=== PATIENT | female | born 1930 | race Caucasian/White ===

== ENCOUNTER 2019-03-30 10:05 | Emergency (ER) | payer OTHER ==
[2019-03-30 10:33] VITALS: TEMP 98; BMI 24.1
[2019-03-30] MEDS ORDERED: SODIUM CHLORIDE 0.9% 1000 ML INFUS.BAG IV ONE (10:33)
--- NOTE | 2019-03-30 10:35 | PDOC ---
History of Present Illness - General Chief Complaint: Pain Stated Complaint: ABDOMINAL PAIN FOR WEEKS FREQUENT BM Time Seen by Provider: 03/30/19 10:30 History Source: Patient Exam Limitations: No Limitations - History of Present Illness Initial Comments: 03/30/19 10:30 88 yo F wit h/o htn here from [place] visiting her daughter for holiday , c/o generalized malaise, frequent burping and abd discomfort. also decreased appetitie, nausea, noted her urine was dark. has been eating and drinking but drinking much less per her daughter. has been having these symptoms over the last 3 weeks. has had colonsocopy one yr ago. no h/o prior abd surgeries. take losartan for htn. no cp no sob. no leg swellig. no f/c no h/o thryoid abnormality. states she has lost 10 lbs over last year. 03/30/19 10:33 Past History - Past Medical History Allergies/Adverse Reactions: Allergies Allergy/AdvReac Type Severity Reaction Status Date / Time No Known Allergies Allergy Unverified 03/30/19 10:07 Home Medications: Ambulatory Orders Acetaminophen [Tylenol .Regular Strength -] 650 mg PO PRN 03/30/19 Aspirin 81 mg PO DAILY 03/30/19 Desvenlafaxine [Desvenlafaxine ER] 50 mg PO HS 03/30/19 Dexlansoprazole [Dexilant] 60 mg PO HS 03/30/19 L.acidoph,Paracasei, B.lactis [Probiotic] 1 each PO DAILY 03/30/19 Losartan 50Mg/Hctz 12.5MG [Hyzaar -] 1 tab PO DAILY 03/30/19 Tramadol HCl 50 mg PO DAILY 03/30/19 COPD: No HTN: Yes Psychiatric Problems: Yes (DEPRESSION) Other medical history: ARTHRITIS BACK PAIN - Psycho Social/Smoking Cessation Hx Smoking History: Never smoked Information on smoking cessation initiated: No Hx Alcohol Use: Yes (RARE SOCIAL) Drug/Substance Use Hx: No Review of Systems - Review of Systems Constitutional: Yes: Malaise. No: Chills, Diaphoresis HEENTM: No: Eye Pain, Nose Pain Respiratory: No: Orthopnea, Shortness of Breath Cardiac (ROS): No: Chest Pain ABD/GI: Yes: Nausea, Poor Appetite, Indigestion. No: Abdominal Distended, Abdominal cramping : Yes: Other (dark urine). No: Burning, Dysuria, Discharge Musculoskeletal: No: Back Pain Endocrine: Yes: Unexplained Weight Loss Hematologic/Lymphatic: No: Anemia All Other Systems: Reviewed and Negative *Physical Exam - Vital Signs Last Vital Signs Temp Pulse Resp BP Pulse Ox 98 F 102 H 16 150/90 95 03/30/19 10:06 03/30/19 10:06 03/30/19 10:06 03/30/19 10:06 03/30/19 10:06 - Physical Exam Comments: 03/30/19 10:34 awake alert lungs clear bilat heart rrr no mrg abd soft mild rlq suprapubic ttp. no rebound no guarding. ext wwp no edema. no calf tenderness. alert oriented x 3. skin warm and dry no rash. Heart Score/ECG Review #1 ECG reviewed & interpreted by me at: 10:51 General ECG Interpretation: Sinus Rhythm, Normal Rate (84), Normal Intervals, No acute ischemic changes ED Treatment Course - LABORATORY CBC & Chemistry Diagram: 03/30/19 10:55 03/30/19 10:55 Medical Decision Making - Medical Decision Making 03/30/19 10:35 88 yo F with h/o htn on losartan with generalized fatigue malaise, dyspepsia, nausea anorexia and weight loss. mild lower quad ttp on exam. differential uti, appendicitis ovarian pathology, hyponatremia from meds, renal fauilre atypical cardiac presentation. plan ekg lab ua ct a/p iv hydration.cxr 03/30/19 12:40 cxr is normal. labs unremarkable. small blood in urine. noted renal calculi in kidney and small cyst on left ovary appendix not well visuzlied. no fever. nomral wbc. pt has had sxs for weeks. unlikley acute appendicitis. plan to dc home. recommend fu with gynecology to follow ovarian cyst, and gi, in addition to urology to evaluate hematuria. Discharge - Discharge Information Problems reviewed: Yes Clinical Impression/Diagnosis: Hematuria Condition: Stable Disposition: HOME - Admission No - Follow up/Referral Referrals: Kapil Bauer MD [Staff Physician] - Allen Tim MD [Staff Physician] - - Patient Discharge Instructions Patient Printed Discharge Instructions: Blood in Urine Additional Instructions: your ct scan of your abdomen and pelvis are normal. only noted abnormalities is a small stone in your kidney which should not be causing you pain currently. also there is a small 2.5 cyst on your left ovary that should be followed up with a [employer] rep. they also noted blood in your urine this could be from prior stone, but should be followed up with a urologist to ensure that it clears .there is no signs of infection in your urine. return for any problems or concerns. follow up with your regular doctor. if you are staying in [place] for a while you can follow up with urologist to evaluate the bladder, and the [employer] rep to watch the cyst in your ovary to ensure its not changing or getting bigger. - Post Discharge Activity
[2019-03-30 11:09] LABS: BASO % 0.3 % (0-2.0); EOS % 0.5 % (0-4.5); HEMOGLOBIN 13.4 GM/dl (10.7-15.3); LYMPH % 16.9 % (8-40); MCH 29.5 pg (25.7-33.7); MCHC 32.7 g/dl (32.0-36.0); MEAN CELL VOLUME 90.2 fl (80-96); MEAN PLT VOLUME 7.8 fl (7.5-11.1); MONO % 8.4 % (3.8-10.2); NEUT % 73.9 % (42.8-82.8); PLATELET COUNT 201 K/MM3 (134-434); RBC 4.54 M/mm3 (3.60-5.2); RDW 13.1 % (11.6-15.6); WHITE BLOOD COUNT 7.1 K/mm3 (4.0-10.8)
[2019-03-30 11:19] LABS: ALBUMIN 4.1 g/dl (3.4-5.0); CALCIUM 9.5 mg/dl (8.5-10); CREATININE 0.8 mg/dl (0.55-1.3); TOT PROT 6.9 g/dl (6.4-8.2)
[2019-03-30 11:35] LABS: EPITHELIAL CELLS FEW /hpf
[2019-03-30 12:48] VITALS: BP 153/88; PULSE 82
--- NOTE | 2019-03-31 13:22 | EKG ---
Test Reason : Blood Pressure : / mmHG Vent. Rate : 084 BPM Atrial Rate : 084 BPM P-R Int : 146 ms QRS Dur : 066 ms QT Int : 398 ms P-R-T Axes : 062 -17 051 degrees QTc Int : 470 ms NORMAL SINUS RHYTHM NORMAL ECG NO PREVIOUS ECGS AVAILABLE Confirmed by ELA CAZARES MD ([id number]) on 03/31/2019 1:22:04 PM Referred By: KAMARI MALLORY Confirmed By:ELA CAZARES MD
== END 2019-03-30 13:16 | disposition home or self-care (01) ==
LOC: FER 10:05
PROC: 3E0337Z Introduction of Electrolytic and Water Balance Substance into Peripheral Vein, Percutaneous Approach (ICD-10-PCS; principal; 2019-03-30)
DX: R31.9 Hematuria, unspecified (principal); I10 Essential (primary) hypertension; F32.9 Major depressive disorder, single episode, unspecified
CPT/HCPCS: 36415; 71046-TC-FY; 74177-TC; 80053; 81003; 81015; 83690; 84443; 84484; 85025; 93005; 99283-25; J7030